=== PATIENT | male | born 1950 | race Caucasian/White ===

== ENCOUNTER 2017-06-23 06:28 | Day surgery (SDC) | payer MEDICARE ==
[~2017-06-23] VITALS: Ht 165.1 cm; Wt 77.6 kg
--- NOTE | ~2017-06-23 | OP ---
PATIENT NAME: JIMENA CASTELLON MEDICAL RECORD: [id number] :52 LOCATION:[facility] ADMISSION DATE: SURGEON: CARLEY PARISH MD DATE OF OPERATION: 06/23/2017 PREOPERATIVE DIAGNOSES: End-stage renal disease and dependence on hemodialysis. OPERATION PERFORMED: Creation of a brachiocephalic Joshua type AV fistula in the right arm. SURGEON: Carley Parish MD. ANESTHESIA: General and axillary block per OTHER SALES SUPPORT WORKER. REFERRING PHYSICIAN: Orlando Cruz MD. PREOPERATIVE NOTE: Mr. Jimena Castellon is a 67-year-old white male presently on dialysis via right internal jugular tunneled dialysis catheter. He needs longer-term access. He is brought to the OR now for creation of a fistula in the right arm. DESCRIPTION OF PROCEDURE: With the patient under general anesthesia with LMA per OTHER SALES SUPPORT WORKER, as well as having had a regional nerve block, he was prepped and draped in a sterile manner. I used a Gilmer drain as a proximal tourniquet and applied nitroglycerin paste and examined the forearm and arm with ultrasound and noted that the cephalic vein and median cephalic vein in the upper forearm and then the arm from elbow to shoulder was very acceptable as was the brachial artery acceptable for creation of a fistula and I decided to go with a brachiocephalic fistula. A transverse incision was made in the 2 vessels exposed and controlled with Silastic loops and treated with topical papaverine. The vein was ligated just proximal to its confluence with the median basilic vein and the vein was flushed with heparinized saline and clamped. The artery was occluded with Silastic loops. It was opened for approximately 6 mm and flushed proximally and distally with heparinized saline. It was then sutured with end of the vein to side of artery with continuous running 7-0 Prolene and when complete, the occluding loops were released and the clamp released on the vein, excellent flow was established in the new fistula. There was good continuous pulsatile Doppler flow in the brachial artery proximal and distal to the anastomosis and within the graft and pulsatile flow preserved at the wrist by Doppler. The wound was irrigated with Ancef and gentamicin solution. It was infiltrated with small amount of 0.25% Marcaine without epinephrine and the wound was closed with interrupted inverted 3-0 Vicryl and running intracuticular 4-0 Monocryl and Dermabond glue. It was dressed with Maxorb Ag, Tegaderm and Cavilon skin prep and the patient awakened and taken to the recovery room. Blood loss during the operation was nil. All sponges, instruments and needles were accounted for. No drain was used and no surgical specimen was submitted for histopathology. PLAN: The patient will be discharged today to continue all the same preoperative medications. He was given a prescription for ten [place] 5/325 tabs 1 p.o. q.4 hours p.r.n. pain and he is instructed to resume activities as tolerated and to come back to see me in my office next week. 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 OPERATIVE REPORT [id number] JIMENA CASTELLON TRANSINT:[id number] Voice Confirmation ID: [id number] DOCUMENT ID: [id number] CARLEY PARISH MD CC: [id number] DICTATION DATE: 06/23/17 1201 REFINERY SUPERINTENDENT: 06/23/17 1358 [facility] [place] 06/23/17 [facility] [address] [place] [address]
[2017-06-23 07:13] VITALS: BP 113/88; Ht 165.1 cm; Wt 77.6 kg
[2017-06-23 07:14] LABS: BASOPHILS 0.5 % (0-2); HEMOGLOBIN 13.1 g/dL (13.5-17.5); IMMATURE GRANULOCYTES 0.3 % (0-5); LYMPHOCYTES 22.4 % (15-50); MCH 29.8 pg (26.0-34.0); MCHC 30.5 g/dL (31.0-37.0); MCV 97.9 fL (80.0-100.0); MEAN PLATELET VOLUME 9.6 fL (7.4-10.4); MONOCYTES 7.8 % (2-11); PLATELET COUNT 317 10x3/uL (130-400); RBC 4.39 10x6/uL (4.20-6.10); RDW 14.6 % (11.5-14.5); WBC 7.3 10x3/uL (4.8-10.8)
[2017-06-23 07:24] LABS: APTT 29.8 SECONDS (22.8-39.4); INR 1.01 (0.85-1.17); PROTIME 13.2 SECONDS (11.6-15.0)
[2017-06-23 07:28] LABS: ANION GAP 13.6 mmol/L (8-16); CARBON DIOXIDE 28.7 mmol/L (21.0-32.0); CREATININE - SERUM 4.4 mg/dL (0.6-1.3); POTASSIUM - SERUM 3.3 mmol/L (3.5-5.1)
[2017-06-23] MEDS ORDERED: PROTONIX40 MG PO (07:36)
[2017-06-23] MEDS ORDERED: RENVELA800 MG PO (07:37)
[2017-06-23] MEDS ORDERED: ATARAX 25 MG TA25 MG PO (07:38)
[2017-06-23] MEDS ORDERED: CLARITIN 10 MG10 MG PO (07:39)
[2017-06-23] MEDS ORDERED: HYDROCODON-ACE1 EAC7 PO (11:51)
--- NOTE | 2017-06-23 16:08 | NUR ---
1455 DRESSED. AWAKE & ALERT WITH NO CHANGES TO DRESSING. RUE IN SLING. GIVEN RX: NORCO 5MG/325MG, MED REC., RTC APPT., D/C INSTRUCTIONS, & NERVE BLOCK INFORMATION SHEET. PT VOICED UNDERSTANDING. TO PRIVATE CAR PER WHEELCHAIR BY VOLUNTEER. HOME WITH MALE FRIEND FROM [place]. Zaheer FAY R.N.
== END 2017-06-23 14:55 | disposition home or self-care (01) ==
LOC: D.OPS 06:28
PROVIDERS: Internal Medicine Nephrology
DX: N18.6 End stage renal disease (principal); Z99.2 Dependence on renal dialysis; Z01.812 Encounter for preprocedural laboratory examination